=== PATIENT | male | born 1945 ===

== ENCOUNTER 2020-07-11 08:40 | Outpatient (CLI) | payer OTHER ==
[2020-07-20] MEDS ORDERED: TAMS0.4C PO (12:42)
== END 2020-07-11 08:53 | disposition home or self-care (01) ==
LOC: SONOGRAMA 08:40
PROVIDERS: ATTEND Specialist
DX: K40.90 Unilateral inguinal hernia, without obstruction or gangrene, not specified as recurrent (principal)

== ENCOUNTER 2020-07-25 04:50 | Day surgery (SDC) | payer OTHER ==
[~2020-07-25 04:50] MED LIST: TAMS0.4C PO
== END 2020-07-25 15:15 | disposition home or self-care (01) ==
LOC: CIR.AMB 04:50
PROVIDERS: ATTEND Specialist
DX: K40.90 Unilateral inguinal hernia, without obstruction or gangrene, not specified as recurrent (principal); Z20.822 Contact with and (suspected) exposure to COVID-19